=== PATIENT | female | born 1990 | race Caucasian/White ===

== ENCOUNTER 2017-03-29 18:00 | Emergency (ER) | payer OTHER ==
[~2017-03-29] VITALS: Ht 162.5 cm; Wt 85.7 kg
[~2017-03-29 18:00] MED LIST: AMOXICILLIN,AM875 MG PO; BACTRIM DS 8001 TA1 PO; BUPROPION HCL150 M2 PO; CETIRIZINE10 MG PO; CIPRODEX 0.3%-7.5 ML OT; CLARITIN10 MG PO; LIDEX 0.05% CRE15 GM T; MACROBID100 M1 PO; MEDROL DOSEPAK4 MG PO; MOTRIN800 MG PO; NKHM; PERCOCET 325 MG1 TA2 PO; PREDNISONE10 MG PO; PRENATAL1 TA1 PO; TOBREX OPHTH S2.5 ML OPH; VISTARIL25 MG PO; ZITHROMAX Z PA250 MG PO; ZITHROMAX250 MG PO
[2017-03-29] MEDS ORDERED: TRINESSA 281 TAB PO (18:06)
== END 2017-03-29 18:48 | disposition home or self-care (01) ==
LOC: ED 18:00
DX: S61.012A Laceration without foreign body of left thumb without damage to nail, initial encounter (principal); F17.200 Nicotine dependence, unspecified, uncomplicated; Z88.1 Allergy status to other antibiotic agents; W26.0XXA Contact with knife, initial encounter; Y93.89 Activity, other specified; Y92.9 Unspecified place or not applicable; Y99.9 Unspecified external cause status

== ENCOUNTER 2017-09-27 22:01 | Emergency (ER) | payer SELFPAY ==
[~2017-09-27] VITALS: Ht 162.5 cm; Wt 86.2 kg
[~2017-09-27 22:01] MED LIST changes: +TRINESSA 281 TAB PO
[2017-09-27 22:29] LABS: BILIRUBIN 1+ (NEGATIVE); BLOOD TRACE-INTACT (NEGATIVE); CLARITY SL CLOUDY (CLEAR); COLOR YELLOW (YELLOW); GLUCOSE NEGATIVE (NEGATIVE); KETONE 1+ (NEGATIVE); LEUKO ESTERASE NEGATIVE (NEGATIVE); NITRITE NEGATIVE (NEGATIVE); SPECIFIC GRAVITY 1.025 (1.005-1.030)
[2017-09-27 22:40] LABS: BACTERIA 2+; EPITHELIAL CELLS 20-25; WBC 0-2 wbc/hpf (0-5)
[2017-09-27] MEDS ORDERED: CLINDAMYCIN HC300 MG PO (23:01)
[2017-09-27] MEDS ORDERED: ZOFRAN ODT4 MG SL (23:01)
== END 2017-09-27 23:37 | disposition home or self-care (01) ==
LOC: ED 22:01
PROVIDERS: Physician Assistant
DX: J02.9 Acute pharyngitis, unspecified (principal); F17.200 Nicotine dependence, unspecified, uncomplicated; Z88.1 Allergy status to other antibiotic agents

== ENCOUNTER 2019-07-02 07:48 | Emergency (ER) | payer OTHER ==
[~2019-07-02] VITALS: Ht 165.1 cm; Wt 95.3 kg
[~2019-07-02 07:48] MED LIST changes: +CLINDAMYCIN HC300 MG PO; +ZOFRAN ODT4 MG SL
[2019-07-02] MEDS ORDERED: BACTRIM 400-801 EACH PO ×3 (08:39→08:42)
== END 2019-07-02 08:47 | disposition home or self-care (01) ==
LOC: ED 07:48
DX: L02.411 Cutaneous abscess of right axilla (principal); L03.111 Cellulitis of right axilla; Z88.1 Allergy status to other antibiotic agents

== ENCOUNTER 2021-09-19 16:03 | Emergency (ER) | payer OTHER ==
[~2021-09-19] VITALS: Wt 99.8 kg
[~2021-09-19 16:03] MED LIST changes: +BACTRIM 400-801 EACH PO
== END 2021-09-19 18:26 | disposition left against medical advice (07) ==
LOC: ED 16:03
DX: R05.9 Cough, unspecified (principal); J02.9 Acute pharyngitis, unspecified; Z53.21 Procedure and treatment not carried out due to patient leaving prior to being seen by health care provider

== ENCOUNTER 2022-04-11 13:50 | Emergency (ER) | payer OTHER ==
[2022-04-11] MEDS ORDERED: CLINDAMYCIN HC300 MG PO (14:58)
[2022-04-11] MEDS ORDERED: EPIPEN 2-P0.3 MG/0.3 IJ (14:58)
== END 2022-04-11 16:22 | disposition home or self-care (01) ==
LOC: ED 13:50
DX: T36.0X1A Poisoning by penicillins, accidental (unintentional), initial encounter (principal); L29.8 Other pruritus; Z88.1 Allergy status to other antibiotic agents; Y92.89 Other specified places as the place of occurrence of the external cause

== ENCOUNTER 2022-06-07 21:13 | Emergency (ER) | payer OTHER ==
[~2022-06-07] VITALS: Ht 162.5 cm; Wt 68.0 kg
[~2022-06-07 21:13] MED LIST changes: +EPIPEN 2-P0.3 MG/0.3 IJ
[2022-06-07] MEDS ORDERED: Motrin,Rufen800 MG PO (21:42)
[2022-06-07] MEDS ORDERED: CLINDAMYCIN HC300 MG PO (21:42)
== END 2022-06-07 22:06 | disposition home or self-care (01) ==
LOC: ED 21:13
DX: K08.89 Other specified disorders of teeth and supporting structures (principal); Z88.1 Allergy status to other antibiotic agents